=== PATIENT | male | born 1935 | race Caucasian/White ===

== ENCOUNTER → 2021-04-24 | Outpatient (CLI) | payer MEDICARE ==
[2016-08-26 10:56] VITALS: BP 119/66
[~2021-04-24] MED LIST: AMLO5TAB4 PO; ATOR40TA59 PO; Areds; DIGO125T79 PO; DILT240C32 PO; DRON400T6 PO; LEVO112T49 PO; LISI10TA16 PO; MULT-658 PO; MULT1TAB92 PO; OMEP20CA16 PO; WARF2TAB96 PO; WARFARIN SODIUM; warfarin
--- NOTE | 2021-04-24 16:06 | RAD ---
MG DIGITAL BILAT DIAGNOSTIC MAMMO WITH THERESE 04/24/2021 8:19 AM INDICATION: Gynecomastia. COMPARISON: None available TECHNIQUE: 3D tomosynthesis was performed in CC and MLO projections. 2D views were obtained from the 3D data. CAD was utilized as needed. FINDINGS: Breast density: Category A: The breasts are almost entirely fatty. Right breast: There are no suspicious microcalcifications, masses or areas of architectural distortio n. Left breast: Gynecomastia. There are no suspicious microcalcifications, masses or areas of architectu ral distortion. IMPRESSION: Gynecomastia of the left breast. Benign findings. BI-RADS category: 2; Benign Recommendations: Recommend clinical management of findings. Electronically signed by: Lulu Valdez MD (04/24/2021 4:04 PM) [id number]
== END ==
LOC: MAMMO 08:07
PROVIDERS: ATTEND Internal Medicine
DX: N62 Hypertrophy of breast (principal)
CPT/HCPCS: 77066; G0279; 77062